=== PATIENT | male | born 1980 | race Two or more races ===

== ENCOUNTER 2022-08-17 22:26 | Emergency (ER) | payer SELFPAY | END 2022-08-17 22:49 | LOC: JD.ED 22:26 | DX: Z53.21 Procedure and treatment not carried out due to patient leaving prior to being seen by health care provider (principal) ==

== ENCOUNTER 2022-09-04 13:03 | Emergency (ER) | payer SELFPAY ==
[2022-09-04] MEDS ORDERED: Metoclopramide 10 MG/2 ML SDV IVPUSH ONE (14:39)
[2022-09-04] MEDS ORDERED: Dextrose 5%-Lactated Ringers 1,000 ML IV SCH (14:45)
[2022-09-04] MEDS ORDERED: Iopamidol 612 MG/ML 100 ML Bottle IVPUSH ONE (15:21)
[2022-09-04] MEDS ORDERED: Sodium Chloride 0.9% 10 ML Syringe FLUSH ONE (15:21)
[2022-09-04 15:49] LABS: ESTIMATED GFR 98 mL/min (>60)
[2022-09-04] MEDS ORDERED: HYDROmorphone 1 MG/ML Syringe IVPUSH ONE (17:37)
== END 2022-09-04 18:17 ==
LOC: JD.ED 13:03
DX: K40.30 Unilateral inguinal hernia, with obstruction, without gangrene, not specified as recurrent (principal)
CPT/HCPCS: 36415; 74177; 80053; 81001; 83605; 85025; 85610; 85730; 86140; 96361; 96374; 96375; 99284; J1170; J2765; J3490; J7121; Q9967

== ENCOUNTER 2022-09-24 20:34 | Observation (INO) | payer SELFPAY ==
[2022-09-24] MEDS ORDERED: HYDROmorphone 1 MG/ML Syringe IVPUSH STA (22:57)
[2022-09-24] MEDS ORDERED: Ondansetron 4 MG/2 ML SDV IVPUSH ONE (22:57)
[2022-09-24] MEDS ORDERED: Sodium Chloride 0.9% 1,000 ML IV SCH (23:00)
[2022-09-24] MEDS ORDERED: Iopamidol 612 MG/ML 100 ML Bottle IVPUSH ONE (23:05)
[2022-09-24] MEDS: Sodium Chloride 0.9% 10 ML Syringe FLUSH ONE ×2 (23:13→23:24)
[2022-09-24 23:26] LABS: ESTIMATED GFR 119 mL/min (>60)
[2022-09-25] MEDS ORDERED: Ondansetron 4 MG/2 ML SDV IVPUSH PRN (01:31)
[2022-09-25] MEDS: Dextrose 5%-Lactated Ringers 1,000 ML IV SCH ×2 (01:51→09:43)
[2022-09-25] MEDS: HYDROmorphone 1 MG/ML Syringe IVPUSH PRN ×4 (03:28→21:36)
[2022-09-25] MEDS: Magnesium Hydroxide 400 MG/5 ML Susp 30 ML Cup PO SCH ×2 (13:03→20:25)
[2022-09-25] MEDS: Enoxaparin 40 MG/0.4 ML Syringe SUBCUT SCH (13:03)
[2022-09-26] MEDS: HYDROmorphone 1 MG/ML Syringe IVPUSH PRN ×2 (04:20→08:54)
[2022-09-26] MEDS: Enoxaparin 40 MG/0.4 ML Syringe SUBCUT SCH (08:54)
[2022-09-26] MEDS: Magnesium Hydroxide 400 MG/5 ML Susp 30 ML Cup PO SCH (08:54)
== END 2022-09-26 11:00 | disposition home or self-care (01) ==
LOC: JD.ED 20:34 → JD.MS 09-25 00:43
PROVIDERS: ADMIT Internal Medicine; ATTEND Internal Medicine
DX: K40.30 Unilateral inguinal hernia, with obstruction, without gangrene, not specified as recurrent (principal); Z79.899 Other long term (current) drug therapy
CPT/HCPCS: 36415; 74177; 80053; 81001; 83605; 83690; 85025; 85610; 85730; 86140; A9270; J1170; J1650; J2405; J3490; J7030; J7121; Q9967

== ENCOUNTER 2022-10-04 11:27 | Observation (INO) | payer SELFPAY ==
[2022-10-04] MEDS ORDERED: Sodium Chloride 0.9% 1,000 ML IV ONE (11:35)
[2022-10-04] MEDS ORDERED: fentaNYL 100 MCG/2 ML SDV IVPUSH ONE (11:36)
[2022-10-04] MEDS ORDERED: HYDROmorphone 0.5 MG/0.5 ML Syringe IVPUSH PRN ×2 (13:34→18:19)
[2022-10-04] MEDS ORDERED: Lactated Ringers 1,000 ML IV SCH (13:45)
[2022-10-04] MEDS: Ketorolac 30 MG/ML SDV IVPUSH SCH (14:02)
[2022-10-04] MEDS ORDERED: Lidocaine 1% 30 ML SDV ONE (15:33)
[2022-10-04] MEDS ORDERED: Bupivacaine 0.5%/EPINEPHrine 1:200,000 50 ML MDV ONE (15:33)
[2022-10-04] MEDS ORDERED: Ondansetron 4 MG/2 ML SDV ONE (16:04)
[2022-10-04] MEDS ORDERED: Lidocaine 1% 2 ML ONE (16:04)
[2022-10-04] MEDS ORDERED: Rocuronium 50 MG/5 ML Vial ONE (16:04)
[2022-10-04] MEDS ORDERED: Propofol 200 MG/20 ML SDV ONE (16:04)
[2022-10-04] MEDS ORDERED: fentaNYL 100 MCG/2 ML SDV ONE (16:05)
[2022-10-04] MEDS ORDERED: Sugammadex Sodium 200 MG/2 ML VIAL ONE (16:24)
[2022-10-04] MEDS ORDERED: fentaNYL 100 MCG/2 ML SDV IVPUSH PRN (18:19)
[2022-10-04] MEDS ORDERED: Ondansetron 4 MG/2 ML SDV IVPUSH PRN ×2 (18:19→19:34)
[2022-10-05] MEDS: Ketorolac 30 MG/ML SDV IVPUSH SCH ×3 (00:15→08:02)
[2022-10-05] MEDS: Acetaminophen/HYDROcodone 325-5 MG Tab PO PRN ×2 (02:58→09:46)
== END 2022-10-05 11:15 | disposition home or self-care (01) ==
LOC: JD.ED 11:27 → JD.SDS 13:48 → JD.OB 18:13
PROVIDERS: ADMIT Specialist; ATTEND Specialist
DX: K40.30 Unilateral inguinal hernia, with obstruction, without gangrene, not specified as recurrent (principal); Z79.899 Other long term (current) drug therapy; Z88.1 Allergy status to other antibiotic agents; Z98.890 Other specified postprocedural states
CPT/HCPCS: 49507; 76870; 93975; 96361; 96374; 96375; 99285; A9270; J1170; J1885; J2405; J2704; J3010; J3490; J7030; J7120

== ENCOUNTER 2023-06-10 12:04 | Emergency (ER) | payer OTHER ==
[2023-06-10] MEDS ORDERED: oxyCODONE ER 20 MG TAB.ER PO ONE (12:45)
== END 2023-06-10 13:50 | disposition home or self-care (01) ==
LOC: JD.ED 12:04
DX: M79.644 Pain in right finger(s) (principal); F17.210 Nicotine dependence, cigarettes, uncomplicated; Z88.1 Allergy status to other antibiotic agents
CPT/HCPCS: 99283; A9270